=== PATIENT | male | born 1945 | race Caucasian/White ===

== ENCOUNTER 2016-12-04 04:14 | Emergency (ER) | payer OTHER ==
[~2016-12-04] VITALS: Ht 167.6 cm; Wt 107.5 kg
[~2016-12-04 04:14] MED LIST: ALBU1.257 NEB; APIX5TAB OR; ATEN50TA PO; FURO20TA3 PO; LEVO500T3 PO; METH4PAK PO; SERT-274 PO; TERA2CAP45 PO
[2016-12-04] MEDS ORDERED: ALBUTEROL SULF 2.5 MG/0.5ML(0.5%) NEB SOLN NEB ONE (05:15)
[2016-12-04] MEDS ORDERED: IPRATROPIUM BROM 0.5 MG/2.5ML INH SOL NEB ONE (05:15)
[2016-12-04] MEDS ORDERED: methylPREDNISolone SOD SUCC 125 MG/2 ML VL IV ONE (05:15)
[2016-12-04 06:40] LABS: INR 1.01 (0.9-1.15); Prothrombin Time 10.4 sec (9.37-12.3)
[2016-12-04 06:43] LABS: Basophils # (auto) 0 uL; Basophils % (auto) 0.5 % (0.0-2.0); Eosinophils # (auto) 0 uL; Eosinophils % (auto) 0.6 % (0.0-7.0); Hematocrit 38.8 % (41.0-53.0); Hemoglobin 13.1 g/dL (13.5-17.5); Lymphocytes # (auto) 1.3 uL; Lymphocytes % (auto) 16.6 % (10.0-50.0); Mean Corpuscular Hemoglobin 29.1 pg (28.0-32.0); Mean Corpuscular Hgb Conc. 33.7 g/dL (32.0-36.0); Mean Corpuscular Volume 86.4 fL (80.0-100.0); Mean Platelet Volume 10.7 fL (7.4-10.4); Monocytes # (auto) 0.8 uL; Monocytes % (auto) 9.8 % (0.0-12.0); Neutrophils # (auto) 5.6 uL; Neutrophils % (auto) 72.5 % (37.0-80.0); Platelet Count (auto) 156 10^3/uL (140-450); Red Cell Distribution Width 15.6 % (11.6-16.0); White Blood Cell 7.8 10^3/uL (4.4-10.8)
[2016-12-04 07:15] LABS: Albumin 3.6 g/dL (3.4-5.0); Alkaline Phosphatase 90 U/L (45-117); Anion Gap 11 (5-15); Aspartate Aminotransferase 15 U/L (15-37); BUN/Creatinine Ratio 18.7; Bilirubin, Total 0.4 mg/dL (0.2-1.0); Blood Urea Nitrogen 34 mg/dL (7-18); Calcium 8.6 mg/dL (8.5-10.1); Carbon Dioxide 28 mmol/L (21-32); Chloride 106 mmol/L (98-107); GFR African American 48 mL/min; GFR Non-African American 39 mL/min; Glucose 115 mg/dL (74-106); Magnesium 2.3 mg/dL (1.6-2.6); Sodium 145 mmol/L (136-145); Total Protein 7.2 g/dL (6.4-8.2)
[2016-12-04 07:44] LABS: B-Type Natriuretic Peptide 122.71 pg/mL (0-100); Temperature: 21.6 C (20.0-25.0)
[2016-12-04 08:10] VITALS: BP 115/79
== END 2016-12-04 13:50 | disposition home or self-care (01) ==
LOC: ER 04:16
DX: J44.1 Chronic obstructive pulmonary disease with (acute) exacerbation (principal); R04.2 Hemoptysis; E66.01 Morbid (severe) obesity due to excess calories; Z68.38 Body mass index [BMI] 38.0-38.9, adult; I48.91 Unspecified atrial fibrillation; E11.22 Type 2 diabetes mellitus with diabetic chronic kidney disease; E11.65 Type 2 diabetes mellitus with hyperglycemia; I13.0 Hypertensive heart and chronic kidney disease with heart failure and stage 1 through stage 4 chronic kidney disease, or unspecified chronic kidney disease; N18.9 Chronic kidney disease, unspecified; I50.9 Heart failure, unspecified; E78.5 Hyperlipidemia, unspecified; Z86.73 Personal history of transient ischemic attack (TIA), and cerebral infarction without residual deficits; Z87.891 Personal history of nicotine dependence
CPT/HCPCS: 36415; 71020; 80053; 83735; 83880; 84484; 85025; 85379; 85610; 85730; 93005; 94640; 94761; 96374; 99285; J2930

== ENCOUNTER 2017-01-16 22:39 | Inpatient (IN) | payer OTHER ==
[~2017-01-16] VITALS: Ht 172.7 cm; Wt 108.2 kg
[2017-01-16 23:10] LABS: Basophils # (auto) 0 uL; Basophils % (auto) 0.4 % (0.0-2.0); Eosinophils # (auto) 0 uL; Eosinophils % (auto) 0.4 % (0.0-7.0); Hemoglobin 13.2 g/dL (13.5-17.5); Lymphocytes # (auto) 1.6 uL; Lymphocytes % (auto) 18.5 % (10.0-50.0); Mean Corpuscular Hgb Conc. 33.1 g/dL (32.0-36.0); Mean Corpuscular Volume 87.7 fL (80.0-100.0); Mean Platelet Volume 10.4 fL (7.4-10.4); Monocytes # (auto) 0.7 uL; Monocytes % (auto) 7.9 % (0.0-12.0); Neutrophils # (auto) 6.3 uL; Neutrophils % (auto) 72.8 % (37.0-80.0); Platelet Count (auto) 173 10^3/uL (140-450); Red Cell Distribution Width 14.6 % (11.6-16.0); White Blood Cell 8.6 10^3/uL (4.4-10.8)
[2017-01-16 23:25] LABS: INR 0.94 (0.9-1.15); Partial Thromboplastin Time 29.4 sec (22.64-33.71); Prothrombin Time 10.1 sec (9.37-12.3)
[2017-01-16 23:39] LABS: B-Type Natriuretic Peptide 127.22 pg/mL (0-100); Temperature: 23.5 C (20.0-25.0)
[2017-01-17 01:26] LABS: Alkaline Phosphatase 112 U/L (45-117); Anion Gap 10 (5-15); BUN/Creatinine Ratio 19.3; Blood Urea Nitrogen 35 mg/dL (7-18); Carbon Dioxide 27 mmol/L (21-32); Chloride 103 mmol/L (98-107); GFR African American 48 mL/min; GFR Non-African American 40 mL/min; Glucose 96 mg/dL (74-106); Potassium 3.9 mmol/L (3.5-5.1); Sodium 140 mmol/L (136-145)
[2017-01-17 01:27] LABS: Albumin 3.5 g/dL (3.4-5.0); Aspartate Aminotransferase 13 U/L (15-37); Bilirubin, Total 0.3 mg/dL (0.2-1.0); Calcium 8.7 mg/dL (8.5-10.1); Magnesium 2.3 mg/dL (1.6-2.6); Total Protein 6.9 g/dL (6.4-8.2)
[2017-01-17] MEDS ORDERED: FUROSEMIDE 20 MG/2 ML VIAL IV ONE (09:00)
[2017-01-17] MEDS ORDERED: HYDROcodone-ACET 5/325MG TAB PO PRN (10:00)
[2017-01-17] MEDS ORDERED: TEMAZEPAM 15 MG CAP PO PRN (10:00)
[2017-01-17] MEDS ORDERED: ONDANSETRON HCL 4 MG/2 ML VIAL IV PRN (10:00)
[2017-01-17] MEDS: BUDESONIDE (INHALATION) 0.5 MG/2 ML NEB NEB SCH ×2 (10:00→21:46)
[2017-01-17] MEDS ORDERED: NITROGLYCERIN 0.4 MG SL TAB SL PRN (10:00)
[2017-01-17] MEDS ORDERED: ACETAMINOPHEN 325 MG TAB PO PRN (10:00)
[2017-01-17] MEDS ORDERED: MORPHINE SULF INJ 2 MG/ML SYRINGE 1ML IV PRN ×2 (10:00)
[2017-01-17] MEDS ORDERED: APIXABAN 2.5 MG TAB PO SCH (10:00)
[2017-01-17] MEDS ORDERED: DOCUSATE SOD 100 MG CAP PO PRN (10:00)
[2017-01-17] MEDS: MULTIPLE VITAMIN TAB PO SCH (10:30)
[2017-01-17] MEDS: NIFEdipine ER 30 MG TAB PO SCH (10:30)
[2017-01-17] MEDS: APIXABAN 5 MG TAB PO SCH ×2 (10:30→21:31)
[2017-01-17] MEDS: FUROSEMIDE 20 MG TAB PO SCH (10:30)
[2017-01-17 13:00] VITALS: BP 125/68
[2017-01-17 13:11] VITALS: BP 117/68
[2017-01-17] MEDS: SODIUM CHLOR 0.9% PF (SALINE LOCK) 10ML VIAL IV SCH ×2 (14:00→21:31)
[2017-01-17] MEDS: ALBUTEROL SULF 2.5 MG/0.5ML(0.5%) NEB SOLN NEB SCH ×2 (14:00→21:46)
[2017-01-17 20:35] LABS: Urine RBC None Seen /hpf (0 - 3)
[2017-01-17 21:12] LABS: Urine Bilirubin Negative (Negative); Urine Blood Negative /uL (Negative); Urine Color Yellow (Yellow); Urine Glucose Normal (Normal); Urine Hyaline Cast FEW /lpf (0 - 2); Urine Ketone Negative (Negative); Urine Nitrite Negative (Negative); Urine Squamous Epithelial Cell FEW /hpf (<5); Urine Urobilinogen Normal (Negative)
[2017-01-17] MEDS: ATORVASTATIN 20 MG TAB PO SCH (21:30)
[2017-01-17] MEDS: SERTRALINE HCL 50 MG TAB PO SCH (21:30)
[2017-01-17] MEDS: TERAZOSIN HCL 1 MG CAP PO SCH (21:31)
[2017-01-17 22:04] VITALS: BP 108/79
[2017-01-18 06:02] VITALS: BP 107/65
[2017-01-18 06:13] LABS: Basophils # (auto) 0 uL; Basophils % (auto) 0.6 % (0.0-2.0); Eosinophils # (auto) 0.1 uL; Eosinophils % (auto) 0.9 % (0.0-7.0); Hematocrit 36.7 % (41.0-53.0); Hemoglobin 12.1 g/dL (13.5-17.5); Lymphocytes # (auto) 1.6 uL; Lymphocytes % (auto) 25.4 % (10.0-50.0); Mean Corpuscular Hemoglobin 29.1 pg (28.0-32.0); Mean Corpuscular Volume 88.2 fL (80.0-100.0); Mean Platelet Volume 10.8 fL (7.4-10.4); Monocytes # (auto) 0.6 uL; Neutrophils # (auto) 4.2 uL; Neutrophils % (auto) 64.1 % (37.0-80.0); Platelet Count (auto) 146 10^3/uL (140-450); Red Cell Distribution Width 14.7 % (11.6-16.0); White Blood Cell 6.5 10^3/uL (4.4-10.8)
[2017-01-18] MEDS: BUDESONIDE (INHALATION) 0.5 MG/2 ML NEB NEB SCH ×2 (06:15→22:12)
[2017-01-18] MEDS: ALBUTEROL SULF 2.5 MG/0.5ML(0.5%) NEB SOLN NEB SCH ×3 (06:15→22:12)
[2017-01-18] MEDS: SODIUM CHLOR 0.9% PF (SALINE LOCK) 10ML VIAL IV SCH ×3 (06:25→21:01)
[2017-01-18 06:30] LABS: Albumin 3.3 g/dL (3.4-5.0); Calcium 8.4 mg/dL (8.5-10.1); Potassium 3.7 mmol/L (3.5-5.1)
[2017-01-18 06:33] LABS: BUN/Creatinine Ratio 18.3
[2017-01-18 06:36] LABS: Bilirubin, Total 0.4 mg/dL (0.2-1.0); Total Protein 6.3 g/dL (6.4-8.2)
[2017-01-18 09:00] VITALS: BP 116/58
[2017-01-18] MEDS: NIFEdipine ER 30 MG TAB PO SCH (10:00)
[2017-01-18] MEDS: APIXABAN 5 MG TAB PO SCH ×2 (11:34→21:01)
[2017-01-18] MEDS: MULTIPLE VITAMIN TAB PO SCH (11:36)
[2017-01-18] MEDS: FUROSEMIDE 20 MG TAB PO SCH (11:36)
[2017-01-18 13:00] VITALS: BP 102/60
[2017-01-18 17:00] VITALS: BP 121/74
[2017-01-18] MEDS: SERTRALINE HCL 50 MG TAB PO SCH (21:01)
[2017-01-18] MEDS: TERAZOSIN HCL 1 MG CAP PO SCH (21:02)
[2017-01-18] MEDS: ATORVASTATIN 20 MG TAB PO SCH (21:02)
[2017-01-18] MEDS ORDERED: METOPROLOL TARTRATE 25 MG TAB PO SCH (22:00)
[2017-01-18 22:10] VITALS: BP 119/75
[2017-01-18 22:18] VITALS: BP 125/69
== END 2017-01-18 22:56 | disposition home or self-care (01) | DRG 309 ==
LOC: ER 22:39 → TELE 22:40 → TELE-E-ADS 01-17 11:39 → TELE-WESTW 01-17 17:13
PROVIDERS: ADMIT Internal Medicine; ATTEND Internal Medicine
DX: I48.92 Unspecified atrial flutter (principal); I13.0 Hypertensive heart and chronic kidney disease with heart failure and stage 1 through stage 4 chronic kidney disease, or unspecified chronic kidney disease; D68.69 Other thrombophilia; I48.2 Chronic atrial fibrillation; N18.3 Chronic kidney disease, stage 3 (moderate); E66.01 Morbid (severe) obesity due to excess calories; D63.8 Anemia in other chronic diseases classified elsewhere; E78.5 Hyperlipidemia, unspecified; F32.9 Major depressive disorder, single episode, unspecified; J44.9 Chronic obstructive pulmonary disease, unspecified; Z80.3 Family history of malignant neoplasm of breast; Z82.5 Family history of asthma and other chronic lower respiratory diseases; Z86.73 Personal history of transient ischemic attack (TIA), and cerebral infarction without residual deficits; Z89.512 Acquired absence of left leg below knee; Z93.0 Tracheostomy status; Z68.36 Body mass index [BMI] 36.0-36.9, adult; Z81.1 Family history of alcohol abuse and dependence
CPT/HCPCS: 36415; 71010; 80053; 81001; 83735; 83880; 84443; 84484; 85025; 85379; 85610; 85730; 93005; 93306; 93970; 94640

== ENCOUNTER 2019-05-26 15:16 | Emergency (ER) | payer OTHER ==
[~2019-05-26] VITALS: Ht 170.2 cm; Wt 104.3 kg
[~2019-05-26 15:16] MED LIST changes: -ATEN50TA PO; -LEVO500T3 PO; -METH4PAK PO
[2019-05-26 18:57] VITALS: BP 139/83
[2019-05-26] MEDS ORDERED: MORPHINE SULF INJ 2 MG/ML SYRINGE 1ML IM ONE (19:15)
[2019-05-26 19:20] LABS: Albumin 3.7 g/dL (3.4-5.0); Calcium 8.5 mg/dL (8.5-10.1); Potassium 4.1 mmol/L (3.5-5.1)
[2019-05-26 19:22] LABS: BUN/Creatinine Ratio 17.5; Bilirubin, Total 0.9 mg/dL (0.2-1.0); Total Protein 7.4 g/dL (6.4-8.2)
[2019-05-26] MEDS ORDERED: COLCHICINE 0.6 MG CAP PO ONE (20:00)
== END 2019-05-26 20:18 | disposition home or self-care (01) ==
LOC: ER 15:25
DX: M10.9 Gout, unspecified (principal); I13.0 Hypertensive heart and chronic kidney disease with heart failure and stage 1 through stage 4 chronic kidney disease, or unspecified chronic kidney disease; N18.9 Chronic kidney disease, unspecified; I50.9 Heart failure, unspecified; J44.9 Chronic obstructive pulmonary disease, unspecified; E78.5 Hyperlipidemia, unspecified; Z86.73 Personal history of transient ischemic attack (TIA), and cerebral infarction without residual deficits; Z87.891 Personal history of nicotine dependence; Z79.899 Other long term (current) drug therapy
CPT/HCPCS: 36415; 73110; 80053; 84550; 96372; 99284; J2270

== ENCOUNTER 2020-01-13 23:35 | Inpatient (IN) | payer MEDICARE, OTHER ==
[~2020-01-13] VITALS: Ht 172.7 cm; Wt 82.1 kg
[2020-01-14 00:43] LABS: Basophils # (auto) 0 10 ^3/uL (0-0.2); Basophils % (auto) 0.3 % (0.0-2.0); Eosinophils # (auto) 0.1 10 ^3/uL (0-0.8); Eosinophils % (auto) 0.6 % (0.0-7.0); Hematocrit 42.8 % (41.0-53.0); Lymphocytes # (auto) 0.7 10 ^3/uL (0.4-5.4); Lymphocytes % (auto) 7.7 % (10.0-50.0); Mean Corpuscular Hemoglobin 29.6 pg (28.0-32.0); Mean Corpuscular Hgb Conc. 32.7 g/dL (32.0-36.0); Mean Corpuscular Volume 90.7 fL (80.0-100.0); Monocytes # (auto) 0.9 10 ^3/uL (0-1.3); Monocytes % (auto) 10.1 % (0.0-12.0); Neutrophils % (auto) 81.3 % (37.0-80.0); Platelet Count (auto) 139 10^3/uL (140-450); Red Blood Cells 4.72 10^6/uL (4.5-5.90); Red Cell Distribution Width 15.3 % (11.8-14.3); White Blood Cell 8.6 10^3/uL (4.4-10.8)
[2020-01-14 00:59] LABS: INR 1.01 (0.9-1.15)
[2020-01-14 01:00] LABS: BUN/Creatinine Ratio 20.5; Calcium 8.6 mg/dL (8.5-10.1); Magnesium 2.3 mg/dL (1.6-2.6); Potassium 4.3 mmol/L (3.5-5.1)
[2020-01-14 01:03] LABS: Bilirubin, Total 0.6 mg/dL (0.2-1.0); Total Protein 7.4 g/dL (6.4-8.2)
[2020-01-14] MEDS ORDERED: levoFLOXacin 750MG 150 ML IV ONE (01:45)
[2020-01-14] MEDS ORDERED: IPRATROPIUM BROM 0.5 MG/2.5ML INH SOL NEB ONE (03:45)
[2020-01-14] MEDS ORDERED: ALBUTEROL SULF 2.5 MG/0.5ML(0.5%) NEB SOLN NEB ONE (03:45)
[2020-01-14] MEDS ORDERED: methylPREDNISolone SOD SUCC 125 MG/2 ML VL IV ONE (03:45)
[2020-01-14] MEDS ORDERED: TEMAZEPAM 15 MG CAP PO PRN (05:30)
[2020-01-14] MEDS ORDERED: ACETAMINOPHEN 325 MG TAB PO PRN (05:30)
[2020-01-14] MEDS ORDERED: ONDANSETRON HCL 4 MG/2 ML VIAL IV PRN (05:30)
[2020-01-14] MEDS ORDERED: NITROGLYCERIN 0.4 MG SL TAB SL PRN (05:30)
[2020-01-14] MEDS ORDERED: MORPHINE SULF INJ 2 MG/ML SYRINGE 1ML IV PRN (05:30)
[2020-01-14] MEDS: ALBUTEROL SULF HFA 90MCG INH 200DOSE IN SCH ×2 (06:00→14:00)
[2020-01-14 07:02] LABS: Magnesium 2.6 mg/dL (1.6-2.6)
[2020-01-14 07:09] LABS: CRP High Sensitivity 10.8 mg/dL (< 0.3)
--- NOTE | 2020-01-14 09:30 | NUR ---
Telemetry admit from ER [place] admitted to Telemetry unit after SBAR received. Patient oriented to Fabiola pickard RN, isolation unit, room, bed, and unit policies regarding patient care and visiting hours. Patient now on continuous telemetry monitoring, tele box #10 and telemetry reading on arrival to unit is afib at 115BPM. Patient placed on bedside oxygen, weighed by bedscale and encouraged to call if they need something. All questions and concerns addressed, patient verbalized understanding. N
[2020-01-14 09:45] VITALS: BP 136/102
[2020-01-14 09:50] VITALS: BP 131/97
[2020-01-14] MEDS ORDERED: ZINC SULFATE 220mg CAP or TAB PO SCH (10:00)
[2020-01-14] MEDS ORDERED: FAMOTIDINE 20 MG TAB PO SCH (10:00)
[2020-01-14] MEDS ORDERED: METOPROLOL TARTRATE 25 MG TAB PO SCH (10:00)
[2020-01-14] MEDS ORDERED: SERTRALINE HCL 50 MG TAB PO SCH (10:00)
[2020-01-14] MEDS ORDERED: CHOLECALCIFEROL (VITD3) 1,000IU=25mCg TAB PO SCH (10:00)
[2020-01-14] MEDS ORDERED: APIXABAN 5 MG TAB PO SCH (10:00)
[2020-01-14] MEDS ORDERED: ASCORBIC ACID 1,000 MG TAB PO SCH (10:00)
[2020-01-14] MEDS ORDERED: FUROSEMIDE 40 MG TAB PO SCH (10:00)
[2020-01-14] MEDS ORDERED: ENOXAPARIN SOD 40 MG/0.4 ML SYRINGE SC SCH (10:00)
[2020-01-14] MEDS ORDERED: METOPROLOL TARTRATE 25 MG TAB PO ONE (11:30)
[2020-01-14] MEDS ORDERED: methylPREDNISolone SOD SUCC 40 MG/ML VL IV SCH (11:30)
--- NOTE | 2020-01-14 15:30 | NUR ---
TRANSFER OF CARE HAND OFF REPORT GIVEN TO SHAYE JOAQUIN. CARE ENDORSED.
--- NOTE | 2020-01-14 15:30 | NUR ---
Telemetry admit from [facility] unit [place] admitted to Telemetry unit after SBAR received. Patient oriented to SHAYE URIBE, RN primary RN, unit, room, bed, and unit policies regarding patient care and visiting hours. Patient now on continuous telemetry monitoring, tele box #10. Patient placed on bedside oxygen 3L via NC, weighed by bed scale and encouraged to call if they need something. All questions and concerns addressed, patient verbalized understanding.
[2020-01-14 17:00] VITALS: BP 124/99
[2020-01-14] MEDS ORDERED: ALBU0.5N2 NEB (18:47)
[2020-01-14] MEDS ORDERED: PRED20TA2 PO (18:47)
[2020-01-14] MEDS ORDERED: LEVO500T21 PO (18:47)
[2020-01-14] MEDS ORDERED: IPR002IS NEB (18:47)
--- NOTE | 2020-01-14 19:05 | NUR ---
OPENING SHIFT NOTE: ASSUMED CARE OF PATIENT. PATIENT AWAKE, ALERT AND ORIENTED X4. NO S/S OF DISTRESS OR SOB, RESPIRATIONS ARE EVEN AND UNLABORED. BED IS LOW, LOCKED, TWO SIDE RAILS RAISED, AND CALL [place] WITHIN REACH. INSTRUCTED PATIENT ON POC AND ENCOURAGED HIM TO CALL FOR ASSISTANCE, PATIENT VERBALIZED UNDERSTANDING. WILL CONTINUE TO MONITOR Q1 HR AND PRN.
[2020-01-14 19:57] VITALS: BP 93/62
[2020-01-14 20:00] VITALS: BP 160/89
--- NOTE | 2020-01-14 21:00 | NUR ---
Discharge instructions given as ordered. Encourage to follow up with PMD as instructed. All questions and concerns addressed. Patient verbalized understanding. Medication reconciliation form completed and copy given to patient. IV removed with catheter intact, pressure dressing applied and patient tolerated well. Telemetry unit returned to ICU. Patient taken to vehicle via wheelchair with all personal belongings, accompanied by staff with no incidents. No distress noted at time of departure.
[2020-01-14] MEDS ORDERED: METOPROLOL TARTRATE 50 MG TAB PO SCH (22:00)
[2020-01-14] MEDS ORDERED: ATORVASTATIN 20 MG TAB PO SCH (22:00)
--- NOTE | 2020-01-15 10:09 | NUR ---
D/C Planning Per SS consult for safety evaluation and manage care. Faxed clinical information to [facility]. Per Hilaria Lucero patient has been accepted and service to start within 24-48hrs upon d/c day. BARBARA Perez with [facility] medical group was informed
[2020-01-16] MEDS ORDERED: levoFLOXacin 750MG 150 ML IV SCH
[2020-01-16] MEDS ORDERED: levoFLOXacin 500MG 100 ML IV SCH (10:00)
== END 2020-01-14 20:15 | disposition home health service (06) | DRG 189 ==
LOC: ER 23:37 → TELE 23:38 → EAST 01-14 09:40 → TELE-CENTR 01-14 15:30
PROVIDERS: ADMIT Nurse Practitioner; ATTEND Hospitalist
DX: J96.20 Acute and chronic respiratory failure, unspecified whether with hypoxia or hypercapnia (principal); J44.1 Chronic obstructive pulmonary disease with (acute) exacerbation; I48.20 Chronic atrial fibrillation, unspecified; N28.9 Disorder of kidney and ureter, unspecified; E78.5 Hyperlipidemia, unspecified; I11.0 Hypertensive heart disease with heart failure; I50.9 Heart failure, unspecified; M10.9 Gout, unspecified; J20.9 Acute bronchitis, unspecified; F32.9 Major depressive disorder, single episode, unspecified; I70.0 Atherosclerosis of aorta; Z79.01 Long term (current) use of anticoagulants; Z80.3 Family history of malignant neoplasm of breast; Z82.5 Family history of asthma and other chronic lower respiratory diseases; Z86.73 Personal history of transient ischemic attack (TIA), and cerebral infarction without residual deficits; Z79.899 Other long term (current) drug therapy; Z89.512 Acquired absence of left leg below knee; Z90.49 Acquired absence of other specified parts of digestive tract; Z03.818 Encounter for observation for suspected exposure to other biological agents ruled out; I27.20 Pulmonary hypertension, unspecified
CPT/HCPCS: 36415; 71045; 80053; 82728; 83605; 83615; 83735; 83880; 84443; 84484; 85025; 85379; 85610; 85730; 86141; 87070; 87804; 87880; 93005; 93306; 94640; 96365; G0378; J1956

== ENCOUNTER 2020-01-15 02:00 | Inpatient (IN) | payer OTHER ==
[~2020-01-15] VITALS: Ht 172.7 cm; Wt 114.4 kg
[~2020-01-15 02:00] MED LIST changes: +ALBU0.5N2 NEB; -ALBU1.257 NEB; +IPR002IS NEB; +LEVO500T21 PO; +PRED20TA2 PO
[2020-01-15] MEDS ORDERED: ONDANSETRON HCL 4 MG/2 ML VIAL IV ONE (03:00)
[2020-01-15] MEDS ORDERED: MORPHINE SULFATE 4 MG/ML SYR/VIAL IV ONE ×2 (03:00→04:30)
[2020-01-15 03:25] LABS: Basophils # (auto) 0 10 ^3/uL (0-0.2); Basophils % (auto) 0.1 % (0.0-2.0); Eosinophils # (auto) 0 10 ^3/uL (0-0.8); Hematocrit 39.9 % (41.0-53.0); Hemoglobin 13.4 g/dL (13.5-17.5); Lymphocytes # (auto) 0.6 10 ^3/uL (0.4-5.4); Lymphocytes % (auto) 4.1 % (10.0-50.0); Mean Corpuscular Hemoglobin 29.9 pg (28.0-32.0); Mean Corpuscular Hgb Conc. 33.5 g/dL (32.0-36.0); Mean Corpuscular Volume 89.3 fL (80.0-100.0); Monocytes # (auto) 0.9 10 ^3/uL (0-1.3); Neutrophils # (auto) 13.2 10 ^3/uL (1.6-8.6); Neutrophils % (auto) 89.8 % (37.0-80.0); Nucleated Red Blood Cells % 0.4 %; Platelet Count (auto) 173 10^3/uL (140-450); Red Blood Cells 4.46 10^6/uL (4.5-5.90); White Blood Cell 14.7 10^3/uL (4.4-10.8)
[2020-01-15 03:41] LABS: Albumin 3.2 g/dL (3.4-5.0); Calcium 8.8 mg/dL (8.5-10.1); INR 1.09 (0.9-1.15); Partial Thromboplastin Time 30.8 sec (23.64-32.05); Potassium 4.8 mmol/L (3.5-5.1)
[2020-01-15 03:45] LABS: BUN/Creatinine Ratio 24.4; Bilirubin, Total 0.4 mg/dL (0.2-1.0); Total Protein 7.3 g/dL (6.4-8.2)
[2020-01-15] MEDS ORDERED: IPRATROPIUM BROM 0.5 MG/2.5ML INH SOL NEB ONE (04:30)
[2020-01-15] MEDS ORDERED: ALBUTEROL SULF 2.5 MG/0.5ML(0.5%) NEB SOLN NEB ONE (04:30)
[2020-01-15] MEDS ORDERED: SODIUM CHLORIDE 0.9% 1,000 ML IV ONE (04:30)
[2020-01-15] MEDS ORDERED: MORPHINE SULFATE 4 MG/ML SYR/VIAL IV PRN (06:00)
[2020-01-15] MEDS ORDERED: TEMAZEPAM 15 MG CAP PO PRN (06:00)
[2020-01-15] MEDS ORDERED: ONDANSETRON HCL 4 MG/2 ML VIAL IV PRN (06:00)
[2020-01-15] MEDS ORDERED: NITROGLYCERIN 0.4 MG SL TAB SL PRN (06:00)
[2020-01-15] MEDS ORDERED: MORPHINE SULF INJ 2 MG/ML SYRINGE 1ML IV PRN (06:00)
[2020-01-15] MEDS ORDERED: ACETAMINOPHEN 325 MG TAB PO PRN (06:00)
[2020-01-15] MEDS ORDERED: HYDROmorphone HCL 2 MG/ML VL IV ONE (07:15)
[2020-01-15] MEDS ORDERED: SERTRALINE HCL 50 MG TAB PO SCH (10:00)
[2020-01-15] MEDS: METOPROLOL TARTRATE 25 MG TAB PO SCH ×2 (10:00→22:28)
[2020-01-15] MEDS ORDERED: APIXABAN 5 MG TAB PO SCH (10:00)
[2020-01-15] MEDS: FUROSEMIDE 20 MG TAB PO SCH (10:13)
[2020-01-15] MEDS: PANTOPRAZOLE 40 MG TAB PO SCH (10:13)
[2020-01-15 13:00] VITALS: BP 96/64
[2020-01-15 16:28] LABS: Urine Bacteria NONE SEEN /hpf (None Seen); Urine Blood Negative /uL (Negative); Urine Hyaline Cast FEW /lpf (0 - 2); Urine Specific Gravity 1.018 (1.001-1.035); Urine WBC 1 /hpf (0 - 3)
[2020-01-15 17:00] VITALS: BP 106/58
[2020-01-15] MEDS: HYDROcodone-ACET 5/325MG TAB PO PRN (19:05)
[2020-01-15 22:00] VITALS: BP 113/63
[2020-01-15] MEDS: SERTRALINE HCL 50 MG TAB PO SCH (22:27)
[2020-01-15] MEDS: ATORVASTATIN 20 MG TAB PO SCH (22:28)
[2020-01-15] MEDS ORDERED: levoFLOXacin 500 MG TAB PO ONE (23:30)
[2020-01-15] MEDS: predniSONE 20 MG TAB PO SCH (23:30)
[2020-01-16] MEDS: HYDROcodone-ACET 5/325MG TAB PO PRN ×2 (03:17→18:08)
[2020-01-16 05:00] VITALS: BP 108/59
[2020-01-16 05:29] LABS: Basophils # (auto) 0 10 ^3/uL (0-0.2); Basophils % (auto) 0.2 % (0.0-2.0); Eosinophils # (auto) 0 10 ^3/uL (0-0.8); Hematocrit 34.9 % (41.0-53.0); Hemoglobin 11.5 g/dL (13.5-17.5); Lymphocytes # (auto) 0.4 10 ^3/uL (0.4-5.4); Lymphocytes % (auto) 3.4 % (10.0-50.0); Mean Corpuscular Hgb Conc. 32.9 g/dL (32.0-36.0); Mean Corpuscular Volume 91.3 fL (80.0-100.0); Monocytes # (auto) 0.3 10 ^3/uL (0-1.3); Monocytes % (auto) 2.6 % (0.0-12.0); Neutrophils # (auto) 11.3 10 ^3/uL (1.6-8.6); Neutrophils % (auto) 93.8 % (37.0-80.0); Platelet Count (auto) 158 10^3/uL (140-450); Red Blood Cells 3.82 10^6/uL (4.5-5.90); Red Cell Distribution Width 14.8 % (11.8-14.3)
[2020-01-16 05:53] LABS: Albumin 2.9 g/dL (3.4-5.0); BUN/Creatinine Ratio 20.7; Calcium 8.1 mg/dL (8.5-10.1); Potassium 5.4 mmol/L (3.5-5.1)
[2020-01-16 05:56] LABS: Bilirubin, Total 0.6 mg/dL (0.2-1.0); Total Protein 6.7 g/dL (6.4-8.2)
[2020-01-16] MEDS: METOPROLOL TARTRATE 25 MG TAB PO SCH ×2 (08:39→21:54)
[2020-01-16] MEDS: PANTOPRAZOLE 40 MG TAB PO SCH (08:39)
[2020-01-16] MEDS: FUROSEMIDE 20 MG TAB PO SCH (08:39)
[2020-01-16] MEDS: predniSONE 20 MG TAB PO SCH (08:40)
[2020-01-16 09:00] VITALS: BP 115/81
[2020-01-16] MEDS ORDERED: levoFLOXacin 250 MG TAB PO SCH (10:00)
[2020-01-16] MEDS ORDERED: InsuLIN REG 1unit/0.01ml Soln (100units/ml) IV ONE (11:15)
[2020-01-16] MEDS ORDERED: CALCIUM GLUC 4.65meq/50ml D5AE 50 ML IV ONE (11:15)
[2020-01-16] MEDS ORDERED: DEXTROSE (50%) 50ML SYRG IV ONE (11:15)
[2020-01-16] MEDS ORDERED: ALBUTEROL SULF 2.5 MG/0.5ML(0.5%) NEB SOLN NEB ONE (11:15)
[2020-01-16] MEDS ORDERED: FURO40TA4 PO (12:07)
[2020-01-16] MEDS ORDERED: ATOR10TA PO (12:08)
[2020-01-16] MEDS ORDERED: MET25T PO (12:08)
[2020-01-16] MEDS ORDERED: ALBUAER3 IN (12:09)
[2020-01-16] MEDS ORDERED: TAMS0.4C36 PO (12:09)
[2020-01-16 13:00] VITALS: BP 100/66
[2020-01-16 14:08] LABS: BUN/Creatinine Ratio 20.1; Calcium 8.1 mg/dL (8.5-10.1); Potassium 5.1 mmol/L (3.5-5.1)
[2020-01-16] MEDS ORDERED: AMIODARONE HCL 150 MG in D5W 5% 100 ML IV ONE (15:00)
[2020-01-16 17:00] VITALS: BP 109/62
[2020-01-16] MEDS ORDERED: SODIUM CHLORIDE 0.9% 1,000 ML IV SCH (18:00)
[2020-01-16] MEDS: AMIODARONE 450mg/250ml AE 250 ML IV SCH (18:36)
[2020-01-16] MEDS ORDERED: AMIODARONE 450mg/250ml AE 250 ML IV SCH (21:10)
[2020-01-16] MEDS: ATORVASTATIN 20 MG TAB PO SCH (21:53)
[2020-01-16] MEDS: SERTRALINE HCL 50 MG TAB PO SCH (21:54)
[2020-01-16 22:00] VITALS: BP 128/69
[2020-01-17] MEDS: AMIODARONE 450mg/250ml AE 250 ML IV SCH ×3 (01:28→18:31)
[2020-01-17] MEDS: HYDROcodone-ACET 5/325MG TAB PO PRN ×2 (03:05→20:02)
[2020-01-17 05:00] VITALS: BP 103/67
[2020-01-17 06:27] LABS: Basophils # (auto) 0 10 ^3/uL (0-0.2); Basophils % (auto) 0.2 % (0.0-2.0); Eosinophils # (auto) 0 10 ^3/uL (0-0.8); Hematocrit 28.6 % (41.0-53.0); Hemoglobin 9.6 g/dL (13.5-17.5); Lymphocytes # (auto) 0.9 10 ^3/uL (0.4-5.4); Lymphocytes % (auto) 10.4 % (10.0-50.0); Mean Corpuscular Hemoglobin 30.4 pg (28.0-32.0); Mean Corpuscular Hgb Conc. 33.8 g/dL (32.0-36.0); Mean Corpuscular Volume 90.1 fL (80.0-100.0); Monocytes # (auto) 0.8 10 ^3/uL (0-1.3); Monocytes % (auto) 9.9 % (0.0-12.0); Neutrophils # (auto) 6.6 10 ^3/uL (1.6-8.6); Neutrophils % (auto) 79.5 % (37.0-80.0); Platelet Count (auto) 150 10^3/uL (140-450); Red Blood Cells 3.17 10^6/uL (4.5-5.90); Red Cell Distribution Width 14.9 % (11.8-14.3); White Blood Cell 8.3 10^3/uL (4.4-10.8)
[2020-01-17 06:39] LABS: BUN/Creatinine Ratio 21.8; Calcium 7.6 mg/dL (8.5-10.1); Magnesium 2.8 mg/dL (1.6-2.6); Potassium 4.1 mmol/L (3.5-5.1)
[2020-01-17 09:00] VITALS: BP 106/61
[2020-01-17] MEDS: PANTOPRAZOLE 40 MG TAB PO SCH (09:52)
[2020-01-17] MEDS: METOPROLOL TARTRATE 25 MG TAB PO SCH ×2 (09:52→22:00)
[2020-01-17] MEDS ORDERED: SODIUM CHLORIDE 0.9% 1,000 ML IV SCH (10:00)
[2020-01-17] MEDS: predniSONE 20 MG TAB PO SCH (10:01)
[2020-01-17 12:49] VITALS: BP 99/54
[2020-01-17] MEDS: ALBUTEROL SULF 2.5 MG/0.5ML(0.5%) NEB SOLN NEB SCH ×3 (13:10→22:33)
[2020-01-17] MEDS: IPRATROPIUM BROM 0.5 MG/2.5ML INH SOL NEB SCH ×3 (13:10→22:33)
[2020-01-17] MEDS: HEPARIN SODIUM (PORCINE) 5000 UNITS/ML 1ML VIAL SC SCH ×2 (15:04→22:29)
[2020-01-17 17:02] VITALS: BP 115/72
[2020-01-17] MEDS ORDERED: SODIUM CHLORIDE 0.9% 1,000 ML IV ONE (18:00)
[2020-01-17] MEDS: BUDESONIDE (INHALATION) 0.5 MG/2 ML NEB NEB SCH (18:59)
[2020-01-17 22:00] VITALS: BP 117/66
[2020-01-17] MEDS: ATORVASTATIN 20 MG TAB PO SCH (22:28)
[2020-01-17] MEDS: SERTRALINE HCL 50 MG TAB PO SCH (22:28)
[2020-01-18] MEDS: AMIODARONE 450mg/250ml AE 250 ML IV SCH ×4 (03:00→23:33)
[2020-01-18 05:00] VITALS: BP 139/77
[2020-01-18 05:43] LABS: Basophils # (auto) 0 10 ^3/uL (0-0.2); Basophils % (auto) 0.1 % (0.0-2.0); Eosinophils # (auto) 0 10 ^3/uL (0-0.8); Hematocrit 29.5 % (41.0-53.0); Hemoglobin 9.7 g/dL (13.5-17.5); Lymphocytes # (auto) 0.7 10 ^3/uL (0.4-5.4); Lymphocytes % (auto) 5.6 % (10.0-50.0); Mean Corpuscular Hemoglobin 29.7 pg (28.0-32.0); Monocytes # (auto) 0.9 10 ^3/uL (0-1.3); Monocytes % (auto) 7.4 % (0.0-12.0); Neutrophils # (auto) 10.4 10 ^3/uL (1.6-8.6); Neutrophils % (auto) 86.9 % (37.0-80.0); Nucleated Red Blood Cells % 0.1 %; Platelet Count (auto) 204 10^3/uL (140-450); Red Blood Cells 3.28 10^6/uL (4.5-5.90); Red Cell Distribution Width 14.9 % (11.8-14.3)
[2020-01-18] MEDS: HEPARIN SODIUM (PORCINE) 5000 UNITS/ML 1ML VIAL SC SCH (05:55)
[2020-01-18 06:04] LABS: BUN/Creatinine Ratio 21.6; Calcium 7.6 mg/dL (8.5-10.1); Magnesium 2.8 mg/dL (1.6-2.6); Phosphorus 5.1 mg/dL (2.5-4.90); Potassium 4.6 mmol/L (3.5-5.1)
[2020-01-18] MEDS: IPRATROPIUM BROM 0.5 MG/2.5ML INH SOL NEB SCH ×5 (06:50→22:55)
[2020-01-18] MEDS: ALBUTEROL SULF 2.5 MG/0.5ML(0.5%) NEB SOLN NEB SCH ×5 (06:50→22:55)
[2020-01-18 09:00] VITALS: BP_SYST 120; BP_SYST 127; BP_DIAS 58; BP_DIAS 65
[2020-01-18] MEDS: BUDESONIDE (INHALATION) 0.5 MG/2 ML NEB NEB SCH ×2 (10:15→22:55)
[2020-01-18] MEDS: PANTOPRAZOLE 40 MG TAB PO SCH (10:16)
[2020-01-18] MEDS: predniSONE 20 MG TAB PO SCH (10:16)
[2020-01-18] MEDS: METOPROLOL TARTRATE 25 MG TAB PO SCH ×2 (10:17→22:18)
[2020-01-18 13:00] VITALS: BP 106/66
[2020-01-18] MEDS: HYDROcodone-ACET 5/325MG TAB PO PRN ×3 (13:27→23:33)
[2020-01-18 13:47] LABS: INR 1.01 (0.9-1.15)
[2020-01-18] MEDS: SOD CHL 0.45% 1,000 ML IV SCH (14:55)
[2020-01-18 15:59] LABS: Urine Bacteria NONE SEEN /hpf (None Seen); Urine Blood Negative /uL (Negative); Urine Specific Gravity 1.009 (1.001-1.035); Urine WBC 1 /hpf (0 - 3)
[2020-01-18 17:00] VITALS: BP 131/72
[2020-01-18 22:00] VITALS: BP 158/85
[2020-01-18] MEDS: ATORVASTATIN 20 MG TAB PO SCH (22:18)
[2020-01-18] MEDS: SERTRALINE HCL 50 MG TAB PO SCH (22:19)
[2020-01-19] MEDS: SOD CHL 0.45% 1,000 ML IV SCH ×2 (02:24→16:22)
[2020-01-19] MEDS: HYDROcodone-ACET 5/325MG TAB PO PRN ×2 (04:55→14:39)
[2020-01-19 05:00] VITALS: BP 161/92
[2020-01-19 05:47] LABS: Basophils # (auto) 0 10 ^3/uL (0-0.2); Basophils % (auto) 0.1 % (0.0-2.0); Eosinophils # (auto) 0 10 ^3/uL (0-0.8); Hematocrit 29.9 % (41.0-53.0); Hemoglobin 10.1 g/dL (13.5-17.5); Lymphocytes # (auto) 0.6 10 ^3/uL (0.4-5.4); Lymphocytes % (auto) 4.6 % (10.0-50.0); Mean Corpuscular Hemoglobin 30.5 pg (28.0-32.0); Mean Corpuscular Hgb Conc. 33.9 g/dL (32.0-36.0); Mean Corpuscular Volume 89.8 fL (80.0-100.0); Monocytes # (auto) 0.9 10 ^3/uL (0-1.3); Monocytes % (auto) 7.1 % (0.0-12.0); Neutrophils # (auto) 10.8 10 ^3/uL (1.6-8.6); Neutrophils % (auto) 88.2 % (37.0-80.0); Platelet Count (auto) 206 10^3/uL (140-450); Red Blood Cells 3.33 10^6/uL (4.5-5.90); White Blood Cell 12.2 10^3/uL (4.4-10.8)
[2020-01-19 05:59] LABS: Calcium 7.9 mg/dL (8.5-10.1); INR 0.99 (0.9-1.15); Magnesium 2.6 mg/dL (1.6-2.6); Potassium 5.1 mmol/L (3.5-5.1)
[2020-01-19 06:02] LABS: BUN/Creatinine Ratio 23.3
[2020-01-19] MEDS: ALBUTEROL SULF 2.5 MG/0.5ML(0.5%) NEB SOLN NEB SCH ×5 (06:40→22:08)
[2020-01-19] MEDS: IPRATROPIUM BROM 0.5 MG/2.5ML INH SOL NEB SCH ×5 (06:40→22:08)
[2020-01-19] MEDS: AMIODARONE 450mg/250ml AE 250 ML IV SCH ×3 (06:43→21:00)
[2020-01-19 09:00] VITALS: BP 138/76
[2020-01-19] MEDS: predniSONE 20 MG TAB PO SCH (09:41)
[2020-01-19] MEDS: PANTOPRAZOLE 40 MG TAB PO SCH (09:43)
[2020-01-19] MEDS: METOPROLOL TARTRATE 25 MG TAB PO SCH ×2 (10:00→22:46)
[2020-01-19] MEDS: BUDESONIDE (INHALATION) 0.5 MG/2 ML NEB NEB SCH ×2 (10:08→18:28)
[2020-01-19] MEDS ORDERED: fentaNYL CITRATE 100 MCG/2 ML VL ONE (10:15)
[2020-01-19] MEDS ORDERED: ceFAZolin 1GM/50ML 100 ML IV ONE (10:37)
[2020-01-19] MEDS ORDERED: SUCCINYLCHOLINE CHLORIDE 20 MG/ML 10ML VIAL IV ONE (10:45)
[2020-01-19] MEDS ORDERED: PROPOFOL 10 MG/ML 20 ML IV ONE (10:47)
[2020-01-19] MEDS ORDERED: MIDAZOLAM HCL 1MG/1ML-2 ML VIAL ONE (10:50)
[2020-01-19] MEDS ORDERED: HYDROCORTISONE SOD SUCC 100 MG/2ML INJ VIAL ONE (11:00)
[2020-01-19] MEDS ORDERED: LIDOCAINE 1% HCL (LOCAL ANESTH.) INJ 20ML MDV ONE (11:42)
[2020-01-19] MEDS ORDERED: BUPIVACAINE W/ EPINEPH 0.25% INJ 50ML MDV ONE (11:42)
[2020-01-19] MEDS ORDERED: METOCLOPRAMIDE HCL 5MG/ml INJ 2ml VIAL ONE (12:29)
[2020-01-19] MEDS ORDERED: ONDANSETRON HCL 4 MG/2 ML VIAL ONE (12:29)
[2020-01-19] MEDS: LACTATED RINGER'S 1,000 ML IV SCH ×2 (12:34→22:34)
[2020-01-19] MEDS ORDERED: fentaNYL CITRATE 100 MCG/2 ML VL IV PRN (12:45)
[2020-01-19] MEDS ORDERED: ONDANSETRON HCL 4 MG/2 ML VIAL IV PRN (12:45)
[2020-01-19] MEDS ORDERED: ALBUTEROL SULF 2.5 MG/0.5ML(0.5%) NEB SOLN NEB ONE (13:00)
[2020-01-19] MEDS ORDERED: IPRATROPIUM BROM 0.5 MG/2.5ML INH SOL NEB ONE (13:00)
[2020-01-19] MEDS: SODIUM CHLOR 0.9% PF (SALINE LOCK) 10ML VIAL/SYR IV SCH ×2 (14:00→22:27)
[2020-01-19] MEDS: ceFAZolin 1GM 2 GM in D5W 5% 100 ML IV SCH ×2 (16:22→22:45)
[2020-01-19] MEDS ORDERED: HYDROmorphone HCL 2 MG/ML VL IV PRN (16:45)
[2020-01-19 17:00] VITALS: BP 144/83
[2020-01-19 22:00] VITALS: BP 163/94
[2020-01-19] MEDS: APIXABAN 5 MG TAB PO SCH (22:46)
[2020-01-19] MEDS: ATORVASTATIN 20 MG TAB PO SCH (22:46)
[2020-01-19] MEDS: SERTRALINE HCL 50 MG TAB PO SCH (22:47)
[2020-01-20] VITALS (7 sets, daily range): BP systolic 123–145; BP diastolic 71–86
[2020-01-20] MEDS: AMIODARONE 450mg/250ml AE 250 ML IV SCH ×3 (04:39→20:27)
[2020-01-20] MEDS: SOD CHL 0.45% 1,000 ML IV SCH ×2 (04:39→17:34)
[2020-01-20] MEDS: HYDROcodone-ACET 5/325MG TAB PO PRN ×4 (04:40→23:13)
[2020-01-20] MEDS: SODIUM CHLOR 0.9% PF (SALINE LOCK) 10ML VIAL/SYR IV SCH ×3 (05:36→21:10)
[2020-01-20] MEDS: ceFAZolin 1GM 2 GM in D5W 5% 100 ML IV SCH ×2 (05:36→23:12)
[2020-01-20 06:06] LABS: Basophils # (auto) 0 10 ^3/uL (0-0.2); Basophils % (auto) 0.1 % (0.0-2.0); Eosinophils # (auto) 0 10 ^3/uL (0-0.8); Hematocrit 26.4 % (41.0-53.0); Lymphocytes # (auto) 0.8 10 ^3/uL (0.4-5.4); Mean Corpuscular Hemoglobin 30.6 pg (28.0-32.0); Mean Corpuscular Hgb Conc. 34.2 g/dL (32.0-36.0); Mean Corpuscular Volume 89.4 fL (80.0-100.0); Monocytes # (auto) 1.1 10 ^3/uL (0-1.3); Monocytes % (auto) 8.4 % (0.0-12.0); Neutrophils % (auto) 85.5 % (37.0-80.0); Platelet Count (auto) 189 10^3/uL (140-450); Red Blood Cells 2.95 10^6/uL (4.5-5.90); Red Cell Distribution Width 14.9 % (11.8-14.3); White Blood Cell 12.9 10^3/uL (4.4-10.8)
[2020-01-20 06:25] LABS: Albumin 2.8 g/dL (3.4-5.0); Calcium 7.5 mg/dL (8.5-10.1); Magnesium 2.4 mg/dL (1.6-2.6); Potassium 5.2 mmol/L (3.5-5.1)
[2020-01-20 06:29] LABS: Bilirubin, Total 0.6 mg/dL (0.2-1.0); Total Protein 5.8 g/dL (6.4-8.2)
[2020-01-20 06:37] LABS: BUN/Creatinine Ratio 23.3
[2020-01-20] MEDS: IPRATROPIUM BROM 0.5 MG/2.5ML INH SOL NEB SCH ×5 (07:16→22:21)
[2020-01-20] MEDS: ALBUTEROL SULF 2.5 MG/0.5ML(0.5%) NEB SOLN NEB SCH ×5 (07:16→22:20)
[2020-01-20] MEDS: LACTATED RINGER'S 1,000 ML IV SCH ×2 (08:34→17:34)
[2020-01-20] MEDS: PANTOPRAZOLE 40 MG TAB PO SCH (09:11)
[2020-01-20] MEDS: predniSONE 20 MG TAB PO SCH (09:12)
[2020-01-20] MEDS: METOPROLOL TARTRATE 25 MG TAB PO SCH ×2 (09:12→22:45)
[2020-01-20] MEDS: APIXABAN 5 MG TAB PO SCH ×2 (09:12→22:44)
[2020-01-20] MEDS: BUDESONIDE (INHALATION) 0.5 MG/2 ML NEB NEB SCH ×2 (10:15→19:14)
[2020-01-20] MEDS: CALCIUM ACETATE 667 MG CAP PO SCH ×2 (11:49→17:34)
[2020-01-20] MEDS ORDERED: DOCUSATE SOD 100 MG CAP PO ONE (12:15)
[2020-01-20] MEDS ORDERED: ceFAZolin 1GM 2 GM in D5W 5% 100 ML IV SCH (22:00)
[2020-01-20] MEDS: AMIODARONE HCL 200 MG TAB PO SCH (22:44)
[2020-01-20] MEDS: SERTRALINE HCL 50 MG TAB PO SCH (22:44)
[2020-01-20] MEDS: DOCUSATE SOD 100 MG CAP PO SCH (22:45)
[2020-01-20] MEDS: ATORVASTATIN 20 MG TAB PO SCH (22:45)
[2020-01-21] MEDS: IPRATROPIUM BROM 0.5 MG/2.5ML INH SOL NEB SCH ×6 (02:00→22:20)
[2020-01-21] MEDS: ALBUTEROL SULF 2.5 MG/0.5ML(0.5%) NEB SOLN NEB SCH ×6 (02:00→22:20)
[2020-01-21] MEDS: AMIODARONE 450mg/250ml AE 250 ML IV SCH ×2 (03:17→10:30)
[2020-01-21] MEDS: LACTATED RINGER'S 1,000 ML IV SCH ×3 (04:34→22:02)
[2020-01-21 05:57] VITALS: BP 148/76
[2020-01-21] MEDS: SODIUM CHLOR 0.9% PF (SALINE LOCK) 10ML VIAL/SYR IV SCH ×3 (06:00→22:00)
[2020-01-21 06:55] LABS: Basophils # (auto) 0 10 ^3/uL (0-0.2); Basophils % (auto) 0.1 % (0.0-2.0); Eosinophils # (auto) 0 10 ^3/uL (0-0.8); Hematocrit 26.8 % (41.0-53.0); Hemoglobin 9.1 g/dL (13.5-17.5); Lymphocytes # (auto) 0.9 10 ^3/uL (0.4-5.4); Lymphocytes % (auto) 6.1 % (10.0-50.0); Mean Corpuscular Hemoglobin 30.4 pg (28.0-32.0); Mean Corpuscular Hgb Conc. 33.8 g/dL (32.0-36.0); Mean Corpuscular Volume 89.8 fL (80.0-100.0); Monocytes % (auto) 6.3 % (0.0-12.0); Neutrophils # (auto) 13.3 10 ^3/uL (1.6-8.6); Neutrophils % (auto) 87.5 % (37.0-80.0); Platelet Count (auto) 209 10^3/uL (140-450); Red Blood Cells 2.98 10^6/uL (4.5-5.90); Red Cell Distribution Width 14.8 % (11.8-14.3); White Blood Cell 15.2 10^3/uL (4.4-10.8)
[2020-01-21 07:19] LABS: BUN/Creatinine Ratio 23.2; Calcium 8.1 mg/dL (8.5-10.1); Magnesium 2.4 mg/dL (1.6-2.6)
[2020-01-21 07:24] LABS: Potassium 5.6 mmol/L (3.5-5.1)
[2020-01-21 08:00] VITALS: BP 122/72
[2020-01-21] MEDS ORDERED: FUROSEMIDE 20 MG/2 ML VIAL IV ONE (08:00)
[2020-01-21] MEDS ORDERED: SODIUM ZIRCONIUM CYCL 10 GM PAK PO ONE (08:00)
[2020-01-21] MEDS: CALCIUM ACETATE 667 MG CAP PO SCH ×3 (08:23→17:57)
[2020-01-21 09:00] VITALS: BP 122/72
[2020-01-21] MEDS: DOCUSATE SOD 100 MG CAP PO SCH ×2 (10:00→22:00)
[2020-01-21] MEDS: BUDESONIDE (INHALATION) 0.5 MG/2 ML NEB NEB SCH ×2 (10:05→22:21)
[2020-01-21] MEDS: APIXABAN 5 MG TAB PO SCH ×2 (10:27→22:00)
[2020-01-21] MEDS: AMIODARONE HCL 200 MG TAB PO SCH ×2 (10:27→22:00)
[2020-01-21] MEDS: PANTOPRAZOLE 40 MG TAB PO SCH (10:27)
[2020-01-21] MEDS: predniSONE 20 MG TAB PO SCH (10:27)
[2020-01-21] MEDS: METOPROLOL TARTRATE 25 MG TAB PO SCH ×2 (10:28→22:01)
[2020-01-21] MEDS: ceFAZolin 1GM 2 GM in D5W 5% 100 ML IV SCH ×2 (11:19→21:59)
[2020-01-21] MEDS ORDERED: FUROSEMIDE 100 MG/10ML VIAL IV SCH (11:45)
[2020-01-21 13:00] VITALS: BP 146/68
[2020-01-21] MEDS ORDERED: SODIUM ZIRCONIUM CYCL 10 GM PAK PO SCH (14:00)
[2020-01-21 14:47] LABS: BUN/Creatinine Ratio 22.6; Calcium 7.9 mg/dL (8.5-10.1)
[2020-01-21] MEDS ORDERED: FUROSEMIDE 100 MG/10ML VIAL IV ONE (15:15)
[2020-01-21] MEDS: HYDROcodone-ACET 5/325MG TAB PO PRN (15:48)
[2020-01-21 17:00] VITALS: BP 147/70
[2020-01-21 22:00] VITALS: BP 119/81
[2020-01-21] MEDS: ATORVASTATIN 20 MG TAB PO SCH (22:01)
[2020-01-21] MEDS: SERTRALINE HCL 50 MG TAB PO SCH (22:02)
[2020-01-21] MEDS: SENNA 8.6 MG TAB PO PRN (22:02)
[2020-01-22] MEDS: HYDROcodone-ACET 5/325MG TAB PO PRN ×3 (00:42→21:43)
[2020-01-22] MEDS: ALBUTEROL SULF 2.5 MG/0.5ML(0.5%) NEB SOLN NEB SCH ×6 (02:21→22:07)
[2020-01-22] MEDS: IPRATROPIUM BROM 0.5 MG/2.5ML INH SOL NEB SCH ×6 (02:21→22:07)
[2020-01-22 05:00] VITALS: BP 126/46
[2020-01-22 06:08] LABS: Basophils # (auto) 0 10 ^3/uL (0-0.2); Eosinophils # (auto) 0 10 ^3/uL (0-0.8); Lymphocytes # (auto) 0.8 10 ^3/uL (0.4-5.4); Mean Corpuscular Hgb Conc. 34.7 g/dL (32.0-36.0)
[2020-01-22 06:14] LABS: Hematocrit 23.7 % (41.0-53.0); Hemoglobin 8.2 g/dL (13.5-17.5); Lymphocytes % (auto) 5.7 % (10.0-50.0); Mean Corpuscular Hemoglobin 30.4 pg (28.0-32.0); Mean Corpuscular Volume 87.7 fL (80.0-100.0); Monocytes # (auto) 0.8 10 ^3/uL (0-1.3); Monocytes % (auto) 5.9 % (0.0-12.0); Neutrophils # (auto) 12.3 10 ^3/uL (1.6-8.6); Neutrophils % (auto) 88.4 % (37.0-80.0); Platelet Count (auto) 196 10^3/uL (140-450); Red Cell Distribution Width 15.1 % (11.8-14.3); White Blood Cell 13.9 10^3/uL (4.4-10.8)
[2020-01-22 06:30] LABS: Calcium 7.9 mg/dL (8.5-10.1); Magnesium 2.1 mg/dL (1.6-2.6); Potassium 4.8 mmol/L (3.5-5.1)
[2020-01-22 06:33] LABS: BUN/Creatinine Ratio 24.2; Phosphorus 4.6 mg/dL (2.5-4.90)
[2020-01-22] MEDS: SODIUM CHLOR 0.9% PF (SALINE LOCK) 10ML VIAL/SYR IV SCH ×3 (06:40→21:34)
[2020-01-22] MEDS: CALCIUM ACETATE 667 MG CAP PO SCH ×3 (08:28→17:35)
[2020-01-22 09:06] VITALS: BP 135/67
[2020-01-22] MEDS: ceFAZolin 1GM 2 GM in D5W 5% 100 ML IV SCH ×2 (10:19→21:31)
[2020-01-22] MEDS: DOCUSATE SOD 100 MG CAP PO SCH ×2 (10:19→21:43)
[2020-01-22] MEDS: predniSONE 20 MG TAB PO SCH (10:19)
[2020-01-22] MEDS: PANTOPRAZOLE 40 MG TAB PO SCH (10:20)
[2020-01-22] MEDS: METOPROLOL TARTRATE 25 MG TAB PO SCH ×2 (10:20→21:46)
[2020-01-22] MEDS: AMIODARONE HCL 200 MG TAB PO SCH ×2 (10:20→21:43)
[2020-01-22] MEDS: APIXABAN 5 MG TAB PO SCH ×2 (10:20→21:44)
[2020-01-22] MEDS: BUDESONIDE (INHALATION) 0.5 MG/2 ML NEB NEB SCH ×2 (10:55→18:10)
[2020-01-22] MEDS: ERGOCALCIFEROL 50,000 UNIT(1.25MG) CAP PO SCH ×2 (12:47→14:06)
[2020-01-22 13:00] VITALS: BP 144/73
[2020-01-22] MEDS: LACTULOSE 20Gm/30ML SOLN PO PRN ×2 (14:29→21:42)
[2020-01-22 16:39] VITALS: BP 140/78
[2020-01-22] MEDS: SENNA 8.6 MG TAB PO PRN (21:42)
[2020-01-22] MEDS: SERTRALINE HCL 50 MG TAB PO SCH (21:44)
[2020-01-22] MEDS: ATORVASTATIN 20 MG TAB PO SCH (21:44)
[2020-01-22 22:00] VITALS: BP 133/78
[2020-01-23] MEDS: SODIUM CHLOR 0.9% PF (SALINE LOCK) 10ML VIAL/SYR IV SCH ×2 (04:38→14:09)
[2020-01-23] MEDS: HYDROcodone-ACET 5/325MG TAB PO PRN ×2 (04:39→15:49)
[2020-01-23 05:30] VITALS: BP 134/66
[2020-01-23 06:18] LABS: Mean Corpuscular Hemoglobin 30.3 pg (28.0-32.0)
[2020-01-23 06:21] LABS: Hematocrit 24.2 % (41.0-53.0); Hemoglobin 8.2 g/dL (13.5-17.5); Mean Corpuscular Hgb Conc. 34.1 g/dL (32.0-36.0); Platelet Count (auto) 218 10^3/uL (140-450); Red Blood Cells 2.72 10^6/uL (4.5-5.90); Red Cell Distribution Width 15.1 % (11.8-14.3); White Blood Cell 13.4 10^3/uL (4.4-10.8)
[2020-01-23 06:37] LABS: BUN/Creatinine Ratio 26.3; Basophils % (manual) 0 (0.0-2.0); Blast Cells 0; Eosinophils % (manual) 0 (0-7); Magnesium 2.4 mg/dL (1.6-2.6); Metamyelocytes % 0; Myelocytes % 0; Promyelocytes % 0; Reactive Lymphocytes 0
[2020-01-23 07:07] LABS: Band Neutrophils % (manual) 2; Lymphocytes % (manual) 7 (10.0-50.0); Monocytes % (manual) 2 (0-12)
[2020-01-23] MEDS: ALBUTEROL SULF 2.5 MG/0.5ML(0.5%) NEB SOLN NEB SCH ×5 (07:29→19:54)
[2020-01-23] MEDS: IPRATROPIUM BROM 0.5 MG/2.5ML INH SOL NEB SCH ×5 (07:30→19:54)
[2020-01-23] MEDS: BUDESONIDE (INHALATION) 0.5 MG/2 ML NEB NEB SCH ×2 (07:30→19:54)
[2020-01-23] MEDS: CALCIUM ACETATE 667 MG CAP PO SCH ×3 (07:52→18:47)
[2020-01-23 08:37] VITALS: BP 134/66
[2020-01-23 08:43] VITALS: BP 149/76
[2020-01-23] MEDS: AMIODARONE HCL 200 MG TAB PO SCH (09:52)
[2020-01-23] MEDS: DOCUSATE SOD 100 MG CAP PO SCH (09:53)
[2020-01-23] MEDS: APIXABAN 5 MG TAB PO SCH (09:53)
[2020-01-23] MEDS: predniSONE 20 MG TAB PO SCH (09:53)
[2020-01-23] MEDS: PANTOPRAZOLE 40 MG TAB PO SCH (09:53)
[2020-01-23] MEDS: METOPROLOL TARTRATE 25 MG TAB PO SCH (09:58)
[2020-01-23] MEDS ORDERED: BISACODYL 10 MG RECT SUPP PR ONE (11:00)
[2020-01-23] MEDS: ceFAZolin 1GM 2 GM in D5W 5% 100 ML IV SCH (11:09)
[2020-01-23 12:49] VITALS: BP 123/70
[2020-01-23 17:06] VITALS: BP 138/71
[2020-01-23 17:19] VITALS: BP 138/71
== END 2020-01-23 20:20 | DRG 480 ==
LOC: ER 02:02 → TELE 02:03 → TELE-CENTR 09:50 → TELE-EAST 10:26
PROVIDERS: ADMIT Nurse Practitioner; ATTEND Hospitalist
PROC: 0QS734Z Reposition Left Upper Femur with Internal Fixation Device, Percutaneous Approach (ICD-10-PCS; principal; 2020-01-20)
PROC: 2W6PX0Z Traction of Left Upper Leg using Traction Apparatus (ICD-10-PCS; 2020-01-20)
PROC: 8E0Y3EZ Fluorescence Guided Procedure of Lower Extremity, Percutaneous Approach (ICD-10-PCS; 2020-01-20)
DX: S72.142A Displaced intertrochanteric fracture of left femur, initial encounter for closed fracture (principal); N17.0 Acute kidney failure with tubular necrosis; I48.20 Chronic atrial fibrillation, unspecified; J44.1 Chronic obstructive pulmonary disease with (acute) exacerbation; I50.32 Chronic diastolic (congestive) heart failure; I13.0 Hypertensive heart and chronic kidney disease with heart failure and stage 1 through stage 4 chronic kidney disease, or unspecified chronic kidney disease; E87.1 Hypo-osmolality and hyponatremia; J96.10 Chronic respiratory failure, unspecified whether with hypoxia or hypercapnia; Z68.41 Body mass index [BMI] 40.0-44.9, adult; W01.10XA Fall on same level from slipping, tripping and stumbling with subsequent striking against unspecified object, initial encounter; D72.829 Elevated white blood cell count, unspecified; N18.3 Chronic kidney disease, stage 3 (moderate); I48.91 Unspecified atrial fibrillation; F32.9 Major depressive disorder, single episode, unspecified; M10.9 Gout, unspecified; E78.5 Hyperlipidemia, unspecified; E87.5 Hyperkalemia; D64.9 Anemia, unspecified; Z79.51 Long term (current) use of inhaled steroids; Z89.512 Acquired absence of left leg below knee; Z86.73 Personal history of transient ischemic attack (TIA), and cerebral infarction without residual deficits; Z90.49 Acquired absence of other specified parts of digestive tract; Z97.14 Presence of artificial left leg (complete) (partial); Z68.38 Body mass index [BMI] 38.0-38.9, adult; Z81.1 Family history of alcohol abuse and dependence; Z80.3 Family history of malignant neoplasm of breast; Z83.6 Family history of other diseases of the respiratory system; Z99.81 Dependence on supplemental oxygen; E66.01 Morbid (severe) obesity due to excess calories; I27.20 Pulmonary hypertension, unspecified; I07.1 Rheumatic tricuspid insufficiency; Z82.5 Family history of asthma and other chronic lower respiratory diseases; Z79.01 Long term (current) use of anticoagulants
CPT/HCPCS: 36415; 71045; 73501; 73502; 76000; 76775; 80048; 80053; 81001; 82306; 82962; 83735; 83880; 83970; 84100; 84132; 85007; 85025; 85027; 85610; 85730; 86850; 86900; 86901; 87081; 94640; 96361; 96374; 96375; 96376; 97110; 97530; A4565; C1713; C1769; G0378; J0330; J0610; J0690; J1815; J2001; J2250; J2405; J2704; J7060

== ENCOUNTER 2020-02-21 15:01 | Inpatient (IN) | payer OTHER ==
[~2020-02-21] VITALS: Ht 172.7 cm; Wt 103.4 kg
[~2020-02-21 15:01] MED LIST changes: +ALBUAER3 IN; +ATOR10TA PO; -FURO20TA3 PO; +FURO40TA4 PO; +MET25T PO; +TAMS0.4C36 PO; -TERA2CAP45 PO
[2020-02-21 15:57] LABS: Basophils # (auto) 0 10 ^3/uL (0-0.2); Basophils % (auto) 0.5 % (0.0-2.0); Eosinophils # (auto) 0 10 ^3/uL (0-0.8); Eosinophils % (auto) 0.2 % (0.0-7.0); Hematocrit 31.1 % (41.0-53.0); Hemoglobin 10.1 g/dL (13.5-17.5); Lymphocytes # (auto) 0.6 10 ^3/uL (0.4-5.4); Lymphocytes % (auto) 8.2 % (10.0-50.0); Mean Corpuscular Hemoglobin 29.3 pg (28.0-32.0); Mean Corpuscular Hgb Conc. 32.6 g/dL (32.0-36.0); Mean Corpuscular Volume 89.8 fL (80.0-100.0); Monocytes # (auto) 0.9 10 ^3/uL (0-1.3); Monocytes % (auto) 12.1 % (0.0-12.0); Neutrophils # (auto) 5.5 10 ^3/uL (1.6-8.6); Nucleated Red Blood Cells % 0.1 %; Platelet Count (auto) 261 10^3/uL (140-450); Red Blood Cells 3.46 10^6/uL (4.5-5.90); Red Cell Distribution Width 15.9 % (11.8-14.3)
[2020-02-21 16:08] LABS: Alanine Aminotransferase 21 U/L (16-61); Anion Gap 3 (5-15); Blood Urea Nitrogen 24 mg/dL (7-18); Calcium 8.2 mg/dL (8.5-10.1); Carbon Dioxide 31 mmol/L (21-32); Chloride 98 mmol/L (98-107); Glucose 109 mg/dL (74-106); Potassium 4.8 mmol/L (3.5-5.1); Sodium 132 mmol/L (136-145)
[2020-02-21 16:13] LABS: Alkaline Phosphatase 97 U/L (45-117); Aspartate Aminotransferase 17 U/L (15-37); Bilirubin, Total 0.6 mg/dL (0.2-1.0); GFR African American 47 mL/min; GFR Non-African American 39 mL/min; Total Protein 6.5 g/dL (6.4-8.2)
[2020-02-21 16:43] LABS: INR 1.16 (0.9-1.15); Partial Thromboplastin Time 34.2 sec (23.64-32.05)
[2020-02-21] MEDS ORDERED: FUROSEMIDE 40 MG/4 ML VIAL IV ONE (16:45)
[2020-02-21] MEDS ORDERED: FUROSEMIDE 100 MG/10ML VIAL IV ONE (16:45)
[2020-02-21] MEDS ORDERED: MORPHINE SULF INJ 2 MG/ML SYRINGE 1ML IV ONE (16:45)
[2020-02-21] MEDS ORDERED: ISOSORBIDE MONONITRATE IR 20 MG TAB PO ONE (16:45)
[2020-02-21 17:27] LABS: Urine Bacteria NONE SEEN /hpf (None Seen); Urine Blood Negative /uL (Negative); Urine Specific Gravity 1.015 (1.001-1.035); Urine WBC 1 /hpf (0 - 3)
[2020-02-21] MEDS ORDERED: HYDROcodone-ACET 5/325MG TAB PO PRN (20:15)
[2020-02-21] MEDS ORDERED: LORazepam 0.5 MG TAB PO PRN (20:15)
[2020-02-21] MEDS ORDERED: ALUM & MAG HYDROX-SIMETH LIQ(MAALOX) 30 ML PO PRN (20:15)
[2020-02-21] MEDS ORDERED: MORPHINE SULF INJ 2 MG/ML SYRINGE 1ML IV PRN ×2 (20:15)
[2020-02-21] MEDS ORDERED: HYDROcodone-ACET 5/325MG TAB PO ONE (20:15)
[2020-02-21] MEDS ORDERED: DOCUSATE SOD 100 MG CAP PO PRN (20:15)
[2020-02-21] MEDS ORDERED: ONDANSETRON HCL 4 MG/2 ML VIAL IV PRN (20:15)
[2020-02-21] MEDS ORDERED: NITROGLYCERIN 0.4 MG SL TAB SL PRN (20:15)
[2020-02-21 21:04] LABS: Amphetamine Screen, Urine NEGATIVE (NEGATIVE); Barbiturate Scree,Urine NEGATIVE (NEGATIVE); Benzodiazephine Screen, Urine NEGATIVE (NEGATIVE); Cannabinoid Screen, Urine NEGATIVE (NEGATIVE); Cocaine Screen, Urine NEGATIVE (NEGATIVE); Opiate Scree,Urine NEGATIVE (NEGATIVE); Phencyclidine Screen, Urine NEGATIVE (NEGATIVE)
[2020-02-21] MEDS: cefTRIAXone 1GM/50ML D5W 50 ML IV SCH (21:06)
[2020-02-21] MEDS: TAMSULOSIN HYDROCHLORIDE 0.4 MG CAP PO SCH (21:06)
[2020-02-21 22:00] VITALS: BP 133/104
[2020-02-21] MEDS ORDERED: APIXABAN 2.5 MG TAB PO SCH (22:00)
[2020-02-21] MEDS: ATORVASTATIN 20 MG TAB PO SCH (22:00)
[2020-02-21] MEDS: APIXABAN 5 MG TAB PO SCH (22:00)
[2020-02-21 22:40] LABS: Cholesterol 116 mg/dL (< 200)
[2020-02-21 22:44] LABS: HDL Cholesterol 72 mg/dL (40-59); LDL Cholesterol 35 mg/dL (< 100); Triglycerides 64 mg/dL (< 150)
[2020-02-21] MEDS: IPRATROPIUM BROM 0.5 MG/2.5ML INH SOL NEB SCH (22:47)
[2020-02-21] MEDS: ALBUTEROL SULF 2.5 MG/0.5ML(0.5%) NEB SOLN NEB SCH (22:48)
[2020-02-21] MEDS: AZITHROMYCIN 500MG/ 250ML 250 ML IV SCH (23:00)
[2020-02-22 01:54] VITALS: BP 133/104
[2020-02-22] MEDS: ALBUTEROL SULF 2.5 MG/0.5ML(0.5%) NEB SOLN NEB SCH ×7 (02:18→22:08)
[2020-02-22] MEDS: IPRATROPIUM BROM 0.5 MG/2.5ML INH SOL NEB SCH ×7 (02:18→22:08)
[2020-02-22 05:07] VITALS: BP 139/85
[2020-02-22 05:51] LABS: Basophils # (auto) 0 10 ^3/uL (0-0.2); Basophils % (auto) 0.9 % (0.0-2.0); Eosinophils # (auto) 0 10 ^3/uL (0-0.8); Eosinophils % (auto) 0.2 % (0.0-7.0); Hematocrit 28.5 % (41.0-53.0); Hemoglobin 9.4 g/dL (13.5-17.5); Lymphocytes # (auto) 0.7 10 ^3/uL (0.4-5.4); Lymphocytes % (auto) 13.2 % (10.0-50.0); Mean Corpuscular Hemoglobin 29.5 pg (28.0-32.0); Mean Corpuscular Volume 89.3 fL (80.0-100.0); Monocytes # (auto) 0.7 10 ^3/uL (0-1.3); Monocytes % (auto) 14.9 % (0.0-12.0); Neutrophils # (auto) 3.5 10 ^3/uL (1.6-8.6); Neutrophils % (auto) 70.8 % (37.0-80.0); Nucleated Red Blood Cells % 0.1 %; Platelet Count (auto) 221 10^3/uL (140-450); Red Blood Cells 3.19 10^6/uL (4.5-5.90); Red Cell Distribution Width 15.7 % (11.8-14.3)
[2020-02-22] MEDS: FUROSEMIDE 40 MG/4 ML VIAL IV SCH ×2 (05:59→17:49)
[2020-02-22 06:09] LABS: Potassium 3.9 mmol/L (3.5-5.1)
[2020-02-22 06:18] LABS: BUN/Creatinine Ratio 14.1; Bilirubin, Total 0.6 mg/dL (0.2-1.0); Phosphorus 3.7 mg/dL (2.5-4.90); Total Protein 6.2 g/dL (6.4-8.2)
[2020-02-22 06:37] LABS: INR 1.19 (0.9-1.15); Partial Thromboplastin Time 36.4 sec (23.64-32.05)
[2020-02-22 09:00] VITALS: BP 109/82
[2020-02-22] MEDS: APIXABAN 5 MG TAB PO SCH ×2 (09:19→22:10)
[2020-02-22] MEDS: PANTOPRAZOLE 40 MG/10 ML VIAL INJ IV SCH (09:19)
[2020-02-22] MEDS: SPIRONOLACTONE 25 MG TAB PO SCH (09:20)
[2020-02-22] MEDS: ALLOPURINOL 100 MG TAB PO SCH (09:20)
[2020-02-22] MEDS: cefTRIAXone 1GM/50ML D5W 50 ML IV SCH (09:20)
[2020-02-22] MEDS: AMIODARONE HCL 200 MG TAB PO SCH (09:20)
[2020-02-22] MEDS: SERTRALINE HCL 50 MG TAB PO SCH (09:20)
[2020-02-22] MEDS: METOPROLOL SUCCINATE XL 50 MG TAB PO SCH (09:21)
[2020-02-22] MEDS: AZITHROMYCIN 500MG/ 250ML 250 ML IV SCH (09:22)
[2020-02-22 13:00] VITALS: BP 127/68
[2020-02-22] MEDS ORDERED: LORazepam 0.5 MG TAB PO PRN (15:15)
[2020-02-22] MEDS: TAMSULOSIN HYDROCHLORIDE 0.4 MG CAP PO SCH (17:48)
[2020-02-22 22:00] VITALS: BP 112/70
[2020-02-22] MEDS: ATORVASTATIN 20 MG TAB PO SCH (22:11)
[2020-02-23] MEDS: IPRATROPIUM BROM 0.5 MG/2.5ML INH SOL NEB SCH ×4 (02:09→14:13)
[2020-02-23] MEDS: ALBUTEROL SULF 2.5 MG/0.5ML(0.5%) NEB SOLN NEB SCH ×4 (02:10→14:13)
[2020-02-23 05:00] VITALS: BP 102/57
[2020-02-23 05:51] LABS: Basophils # (auto) 0.1 10 ^3/uL (0-0.2); Basophils % (auto) 0.8 % (0.0-2.0); Eosinophils # (auto) 0 10 ^3/uL (0-0.8); Eosinophils % (auto) 0.5 % (0.0-7.0); Hematocrit 28.8 % (41.0-53.0); Hemoglobin 9.8 g/dL (13.5-17.5); Lymphocytes # (auto) 0.8 10 ^3/uL (0.4-5.4); Lymphocytes % (auto) 12.3 % (10.0-50.0); Mean Corpuscular Hemoglobin 30.1 pg (28.0-32.0); Mean Corpuscular Hgb Conc. 33.9 g/dL (32.0-36.0); Mean Corpuscular Volume 88.6 fL (80.0-100.0); Monocytes # (auto) 0.8 10 ^3/uL (0-1.3); Monocytes % (auto) 12.7 % (0.0-12.0); Neutrophils # (auto) 4.7 10 ^3/uL (1.6-8.6); Neutrophils % (auto) 73.7 % (37.0-80.0); Nucleated Red Blood Cells % 0.1 %; Platelet Count (auto) 246 10^3/uL (140-450); Red Blood Cells 3.25 10^6/uL (4.5-5.90); Red Cell Distribution Width 15.7 % (11.8-14.3); White Blood Cell 6.3 10^3/uL (4.4-10.8)
[2020-02-23] MEDS: FUROSEMIDE 40 MG/4 ML VIAL IV SCH (06:00)
[2020-02-23 06:14] LABS: BUN/Creatinine Ratio 16.5; Potassium 3.9 mmol/L (3.5-5.1)
[2020-02-23 09:00] VITALS: BP 118/61
[2020-02-23] MEDS: SPIRONOLACTONE 25 MG TAB PO SCH (09:26)
[2020-02-23] MEDS: PANTOPRAZOLE 40 MG/10 ML VIAL INJ IV SCH (09:26)
[2020-02-23] MEDS: cefTRIAXone 1GM/50ML D5W 50 ML IV SCH (09:26)
[2020-02-23] MEDS: AZITHROMYCIN 500MG/ 250ML 250 ML IV SCH (09:27)
[2020-02-23] MEDS: AMIODARONE HCL 200 MG TAB PO SCH (09:27)
[2020-02-23] MEDS: APIXABAN 5 MG TAB PO SCH (09:27)
[2020-02-23] MEDS: SERTRALINE HCL 50 MG TAB PO SCH (09:28)
[2020-02-23] MEDS: ALLOPURINOL 100 MG TAB PO SCH (09:28)
[2020-02-23] MEDS: METOPROLOL SUCCINATE XL 50 MG TAB PO SCH (09:29)
[2020-02-23 13:00] VITALS: BP 124/76
[2020-02-23] MEDS ORDERED: LEVO500T21 PO (13:54)
[2020-02-23] MEDS ORDERED: FURO40TA4 PO (13:54)
[2020-02-23] MEDS ORDERED: POTA10TA79 PO (13:55)
[2020-02-23] MEDS ORDERED: BUDE0.5S (13:59)
[2020-02-23] MEDS ORDERED: PANT40T (13:59)
[2020-02-23] MEDS ORDERED: AMIO200T4 (13:59)
[2020-02-23] MEDS ORDERED: ALLO100T (13:59)
[2020-02-23] MEDS ORDERED: CALC667C (13:59)
[2020-02-23 14:17] VITALS: BP 118/61
[2020-02-24 10:28] LABS: Free T3 2.13 pg/mL (2.3-4.2); Free T4 (Free Thyroxine) 1.03 ng/dL (0.89-1.76)
== END 2020-02-23 16:55 | disposition home health service (06) | DRG 189 ==
LOC: ER 15:01 → TELE 15:02 → TELE-WESTW 22:19
PROVIDERS: ADMIT Hospitalist; ATTEND Hospitalist
DX: J96.21 Acute and chronic respiratory failure with hypoxia (principal); J18.9 Pneumonia, unspecified organism; I50.33 Acute on chronic diastolic (congestive) heart failure; I13.0 Hypertensive heart and chronic kidney disease with heart failure and stage 1 through stage 4 chronic kidney disease, or unspecified chronic kidney disease; E44.0 Moderate protein-calorie malnutrition; E87.1 Hypo-osmolality and hyponatremia; I48.20 Chronic atrial fibrillation, unspecified; J44.0 Chronic obstructive pulmonary disease with (acute) lower respiratory infection; J44.1 Chronic obstructive pulmonary disease with (acute) exacerbation; N18.4 Chronic kidney disease, stage 4 (severe); N17.9 Acute kidney failure, unspecified; D64.9 Anemia, unspecified; E03.9 Hypothyroidism, unspecified; Z68.34 Body mass index [BMI] 34.0-34.9, adult; E66.9 Obesity, unspecified; E78.5 Hyperlipidemia, unspecified; F32.9 Major depressive disorder, single episode, unspecified; I07.1 Rheumatic tricuspid insufficiency; I27.20 Pulmonary hypertension, unspecified; K59.04 Chronic idiopathic constipation; M10.9 Gout, unspecified; E66.01 Morbid (severe) obesity due to excess calories; R94.6 Abnormal results of thyroid function studies; N40.0 Benign prostatic hyperplasia without lower urinary tract symptoms; Z79.01 Long term (current) use of anticoagulants; Z79.899 Other long term (current) drug therapy; Z80.3 Family history of malignant neoplasm of breast; Z82.5 Family history of asthma and other chronic lower respiratory diseases; Z86.73 Personal history of transient ischemic attack (TIA), and cerebral infarction without residual deficits; Z89.512 Acquired absence of left leg below knee; Z99.81 Dependence on supplemental oxygen; Z90.49 Acquired absence of other specified parts of digestive tract; Z93.0 Tracheostomy status; Z87.81 Personal history of (healed) traumatic fracture
CPT/HCPCS: 36415; 71045; 80048; 80053; 80061; 80307; 81001; 83036; 83735; 83880; 84100; 84439; 84443; 84481; 84484; 85025; 85610; 85730; 87040; 87086; 93005; 94640; 96374; 96375; C9113; G0378; J0696

== ENCOUNTER 2020-07-10 10:17 | Emergency (ER) | payer BC, OTHER ==
[~2020-07-10] VITALS: Ht 172.7 cm; Wt 108.9 kg
[~2020-07-10 10:17] MED LIST changes: +ALLO100T; +AMIO200T4; +BUDE0.5S; +CALC667C; +PANT40T; +POTA10TA32 PO; -PRED20TA2 PO
[2020-07-10 10:55] LABS: Basophils # (auto) 0 10 ^3/uL (0-0.2); Basophils % (auto) 0.4 % (0.0-2.0); Eosinophils # (auto) 0 10 ^3/uL (0-0.8); Hematocrit 32.9 % (41.0-53.0); Hemoglobin 11.1 g/dL (13.5-17.5); Lymphocytes # (auto) 0.5 10 ^3/uL (0.4-5.4); Lymphocytes % (auto) 6.2 % (10.0-50.0); Mean Corpuscular Hemoglobin 30.3 pg (28.0-32.0); Mean Corpuscular Hgb Conc. 33.6 g/dL (32.0-36.0); Monocytes # (auto) 0.9 10 ^3/uL (0-1.3); Monocytes % (auto) 11.8 % (0.0-12.0); Neutrophils % (auto) 81.6 % (37.0-80.0); Platelet Count (auto) 118 10^3/uL (140-450); Red Blood Cells 3.65 10^6/uL (4.5-5.90); Red Cell Distribution Width 15.7 % (11.8-14.3); White Blood Cell 7.4 10^3/uL (4.4-10.8)
[2020-07-10 11:28] LABS: Albumin 3.4 g/dL (3.4-5.0); Calcium 8.4 mg/dL (8.5-10.1); Potassium 4.6 mmol/L (3.5-5.1)
[2020-07-10 11:34] LABS: BUN/Creatinine Ratio 13.9; Bilirubin, Total 1.4 mg/dL (0.2-1.0); Total Protein 6.5 g/dL (6.4-8.2)
[2020-07-10] MEDS ORDERED: POTA10TA32 PO (14:27)
[2020-07-10] MEDS ORDERED: FURO40TA4 PO (14:27)
[2020-07-10] MEDS ORDERED: FUROSEMIDE 20 MG/2 ML VIAL IV ONE (14:30)
[2020-07-10 15:15] VITALS: BP 118/64
--- NOTE | 2020-07-10 16:08 | NUR ---
Faxed order to [facility] [phone] CM for patient to have follow up at [facility] next week and with PMD in 2 weeks, Spoke with Bronwyn Mgr [phone] stated they will take care of it, explain to her that the patient has been discharged.
== END 2020-07-10 15:40 | disposition home or self-care (01) ==
LOC: ER 10:17 → EDBD 10:17 → ER 15:40
DX: J90 Pleural effusion, not elsewhere classified (principal); E87.1 Hypo-osmolality and hyponatremia; D64.9 Anemia, unspecified; I13.0 Hypertensive heart and chronic kidney disease with heart failure and stage 1 through stage 4 chronic kidney disease, or unspecified chronic kidney disease; N18.9 Chronic kidney disease, unspecified; I50.9 Heart failure, unspecified; J44.9 Chronic obstructive pulmonary disease, unspecified; E78.5 Hyperlipidemia, unspecified; F12.10 Cannabis abuse, uncomplicated; Z86.73 Personal history of transient ischemic attack (TIA), and cerebral infarction without residual deficits; Z90.49 Acquired absence of other specified parts of digestive tract
CPT/HCPCS: 36415; 71045; 80053; 83880; 84484; 85025; 93005; 96374; 99285; J1940

== ENCOUNTER 2021-09-21 19:12 | Emergency (ER) | payer BC ==
[~2021-09-21] VITALS: Ht 172.7 cm; Wt 104.3 kg
[~2021-09-21 19:12] MED LIST changes: -LEVO500T21 PO; +LEVO500T31 PO; -SERT-274 PO; +SERT50TA19 PO
[2021-09-21 22:54] LABS: Basophils # (auto) 0.1 10 ^3/uL (0-0.2); Basophils % (auto) 0.4 % (0.0-2.0); Eosinophils # (auto) 0 10 ^3/uL (0-0.8); Hematocrit 35.7 % (41.0-53.0); Hemoglobin 12.6 g/dL (13.5-17.5); Lymphocytes # (auto) 0.4 10 ^3/uL (0.4-5.4); Lymphocytes % (auto) 2.4 % (10.0-50.0); Mean Corpuscular Hemoglobin 29.7 pg (28.0-32.0); Mean Corpuscular Hgb Conc. 35.3 g/dL (32.0-36.0); Mean Corpuscular Volume 84.1 fL (80.0-100.0); Monocytes # (auto) 1.1 10 ^3/uL (0-1.3); Monocytes % (auto) 5.7 % (0.0-12.0); Neutrophils # (auto) 17.2 10 ^3/uL (1.6-8.6); Neutrophils % (auto) 91.5 % (37.0-80.0); Red Blood Cells 4.25 10^6/uL (4.5-5.90); White Blood Cell 18.8 10^3/uL (4.4-10.8)
[2021-09-21 23:08] LABS: Albumin 3.3 g/dL (3.4-5.0); Calcium 8.1 mg/dL (8.5-10.1); Magnesium 2.2 mg/dL (1.6-2.6)
[2021-09-21 23:39] LABS: BUN/Creatinine Ratio 11.8; Total Protein 7.7 g/dL (6.4-8.2)
[2021-09-21] MEDS ORDERED: ETOMIDATE (2MG/ML) 20ML VIAL IV ONE (23:52)
[2021-09-21] MEDS ORDERED: ROCURONIUM 10MG/ML 10ML VIAL IV ONE (23:52)
[2021-09-22] MEDS ORDERED: ETOMIDATE (2MG/ML) 20ML VIAL IV ONE
[2021-09-22] MEDS ORDERED: ROCURONIUM 10MG/ML 10ML VIAL IV ONE
[2021-09-22] MEDS ORDERED: SODIUM CHL 3% 500 ML IV ONE (00:15)
[2021-09-22] MEDS ORDERED: LORazepam 2MG/ML-1ML VIAL ONE (00:22)
[2021-09-22] MEDS ORDERED: LORazepam 2MG/ML-1ML VIAL IV ONE (00:30)
[2021-09-22 00:44] VITALS: BP 121/49
== END 2021-09-22 01:38 ==
LOC: ER 19:17
DX: I46.9 Cardiac arrest, cause unspecified (principal); E87.1 Hypo-osmolality and hyponatremia; R56.9 Unspecified convulsions; R41.82 Altered mental status, unspecified; F12.10 Cannabis abuse, uncomplicated; I13.0 Hypertensive heart and chronic kidney disease with heart failure and stage 1 through stage 4 chronic kidney disease, or unspecified chronic kidney disease; N18.9 Chronic kidney disease, unspecified; I50.9 Heart failure, unspecified; J44.9 Chronic obstructive pulmonary disease, unspecified; E78.5 Hyperlipidemia, unspecified; Z90.49 Acquired absence of other specified parts of digestive tract; Z86.73 Personal history of transient ischemic attack (TIA), and cerebral infarction without residual deficits
CPT/HCPCS: 31500; 36415; 36600; 70450; 71045; 80053; 82805; 83735; 84484; 85025; 92950; 93005; 94660; 96360; 99291; 99292; J2060